=== PATIENT | female | born 1980 ===

== ENCOUNTER 2019-11-15 07:34 | Inpatient (IN) ==
[2019-11-15 07:55] LABS: Bilirubin,Urine Negative (Negative); Blood,Urine Negative (Negative); Clarity,Urine Cloudy (Clear); Color,Urine Yellow (Yellow); Glucose,Urine (UA) Normal (Normal); Ketones,Urine Negative (Negative); Leukocyte Esterase,Urine Moderate (Negative); Nitrite,Urine Negative (Negative); Protein,Urine Negative (Neg-Trace); Specific Gravity,Urine 1.009 (1.010-1.025); Urobilinogen,Urine Normal (Normal)
[2019-11-15 07:57] LABS: Bacteria,Urine Moderate per hpf (None-Few); Hyaline Casts,Urine None Seen per lpf (None-Few); RBC,Urine 0-3 per hpf (0-3); Squamous Epithelial Cell,Urine Many per lpf (None-Few); WBC,Urine 15-30 per hpf (0-3)
[2019-11-15 08:13] LABS: Basophils % 0.2 %; Eosinophils # 0.1 K/mcL (0.0-0.6); Eosinophils % 1.9 %; Hematocrit 33.9 % (35.3-44.9); Hemoglobin 10.3 g/dL (11.5-15.4); Immature Granulocytes % 0.2 % (0-4); Lymphocytes % 19.3 %; Mean Corpuscular HGB Conc 30.4 g/dL (31.6-35.5); Mean Corpuscular Hemoglobin 26.8 pg (28.0-33.3); Mean Corpuscular Volume 88.3 fL (83.0-100.0); Mean Platelet Volume 8.6 fL (9.4-12.4); Monocytes # 0.3 K/mcL (0.0-1.3); Monocytes % 5.7 %; Neutrophils # 3.8 K/mcL (1.6-8.9); Platelet Count 182 K/mcL (140-400); Red Blood Count 3.84 M/mcL (3.82-4.97); Segmented Neutrophils % 72.7 %; White Blood Count 5.2 K/mcL (4.3-11.1)
[2019-11-15 08:32] LABS: Acetaminophen < 10 mcg/mL (10-20); BUN/Creatinine Ratio 15 (6-26); Blood Urea Nitrogen 7 mg/dL (6-20); Calcium 9.2 mg/dL (8.6-10.3); Carbon Dioxide 27 mEq/L (23-29); Chloride 99 mEq/L (98-107); Ethanol < 10 mg/dL (Less than 10); Glucose 124 mg/dL (70-105); Osmolality,Calculated 273 (280-300); Potassium 3.5 mEq/L (3.5-5.1); Salicylate < 2.5 mg/dL (15.0-30.0); Sodium 132 mEq/L (136-145); eGFR For African Americans > 60 (> 60); eGFR For Non-African Americans > 60 (> 60)
[2019-11-15 09:08] LABS: Amphetamine Screen,Urine Negative ng/mL (Cutoff=1000); Barbiturate Screen,Urine Negative ng/mL (Cutoff=200); Benzodiazepines Screen,Urine Negative ng/mL (Cutoff=200); Cannabinoid Screen,Urine Positive ng/mL (Cutoff = 50); Cocaine Screen,Urine Negative ng/mL (Cutoff= 300); Opiate Screen,Urine Negative ng/mL (Cutoff=300); Phencyclidine Screen,Urine Negative ng/mL (Cutoff=25)
[2019-11-15] MEDS ORDERED: Haloperidol Lactate 5 MG/ML VIAL IM PRN (10:54)
[2019-11-15] MEDS ORDERED: haloperidoL 5 MG TABLET PO PRN (10:54)
[2019-11-15] MEDS ORDERED: MOM Conc 10 ML UD.LIQ PO PRN (10:54)
[2019-11-15] MEDS ORDERED: Mag Hydrox/Al Hydrox/Simeth 30 ML UDC PO PRN (10:54)
[2019-11-15] MEDS ORDERED: QUEtiapine Fumarate 25 MG TABLET PO PRN (10:54)
[2019-11-15] MEDS ORDERED: *HR* LORazepam 2 MG/ML VIAL IM PRN (10:54)
[2019-11-15] MEDS ORDERED: *HR* LORazepam 1 MG TABLET PO PRN (10:54)
[2019-11-15 12:43] LABS: Chol/HDL Ratio 2.6 (0-4.9); Cholesterol 145 mg/dL (< 200); HDL Cholesterol 55 mg/dL (40-59); LDL Cholesterol,Calculated 75 mg/dL (0-99); Triglycerides 77 mg/dL (< 150)
[2019-11-15 12:44] LABS: Estimated Average Glucose 91 mg/dl
[2019-11-15 14:46] LABS: Thyroid Stimulating Hormone 7.576 mcIU/mL (0.340-5.600)
[2019-11-15] MEDS: Lurasidone 20 MG TABLET PO SCH (16:17)
[2019-11-15] MEDS: Nicotine 2 MG GUM BC PRN (16:17)
[2019-11-16] MEDS ORDERED: NON-FORMULARY MEDICATION 1 EACH EACH (Duloxetine Hcl [Cymbalta] 60 MG) PO SCH (09:00)
[2019-11-16] MEDS: *HR* Buprenorphine HCl 8 MG TAB.SUBL SL SCH (10:16)
[2019-11-16] MEDS: lamoTRIgine 100 MG TABLET PO SCH (10:17)
[2019-11-16 11:35] LABS: Basophils % 0.5 %; Eosinophils # 0.1 K/mcL (0.0-0.6); Eosinophils % 1.4 %; Hematocrit 36.4 % (35.3-44.9); Immature Granulocytes % 0.2 % (0-4); Lymphocytes # 0.9 K/mcL (0.6-4.6); Lymphocytes % 20.4 %; Mean Corpuscular HGB Conc 30.2 g/dL (31.6-35.5); Mean Corpuscular Hemoglobin 26.4 pg (28.0-33.3); Mean Corpuscular Volume 87.5 fL (83.0-100.0); Mean Platelet Volume 8.8 fL (9.4-12.4); Monocytes # 0.2 K/mcL (0.0-1.3); Monocytes % 5.2 %; Neutrophils # 3.1 K/mcL (1.6-8.9); Platelet Count 212 K/mcL (140-400); Red Blood Count 4.16 M/mcL (3.82-4.97); Red Cell Distribution Width 16.3 % (11.5-14.5); Segmented Neutrophils % 72.3 %; White Blood Count 4.3 K/mcL (4.3-11.1)
[2019-11-16] MEDS: Nicotine 2 MG GUM BC PRN ×4 (12:15→23:37)
[2019-11-16] MEDS: Lurasidone 20 MG TABLET PO SCH (17:38)
[2019-11-16] MEDS: Acetaminophen 325 MG TABLET PO PRN (21:02)
[2019-11-17] MEDS: Nicotine 2 MG GUM BC PRN ×5 (06:06→20:20)
[2019-11-17] MEDS: *HR* Buprenorphine HCl 8 MG TAB.SUBL SL SCH (08:33)
[2019-11-17] MEDS: lamoTRIgine 100 MG TABLET PO SCH (08:33)
[2019-11-17] MEDS: Acetaminophen 325 MG TABLET PO PRN ×2 (16:09→19:26)
[2019-11-17] MEDS: Lurasidone 20 MG TABLET PO SCH (17:12)
[2019-11-18] MEDS: Nicotine 2 MG GUM BC PRN (06:16)
[2019-11-18] MEDS: lamoTRIgine 100 MG TABLET PO SCH (08:39)
[2019-11-18] MEDS: Acetaminophen 325 MG TABLET PO PRN (08:39)
[2019-11-18] MEDS: *HR* Buprenorphine HCl 8 MG TAB.SUBL SL SCH (08:39)
[2019-11-18 08:46] VITALS: BP 107/72
[2019-11-18] MEDS ORDERED: FLU Vac QV 19-20 (6Month+)/PF 0.5 ML SYRINGE IM ONE (09:25)
== END 2019-11-18 11:05 | disposition home or self-care (01) | DRG 885 ==
LOC: EMEROOARM 07:34 → 1ANU 10:50
PROVIDERS: ADMIT Psychiatry & Neurology Psychiatry; ATTEND Psychiatry & Neurology Psychiatry